=== PATIENT | male | born 1950 | race Caucasian/White ===

== ENCOUNTER → 2021-01-25 | Outpatient (CLI) | payer MEDICARE ==
--- NOTE | 2021-01-25 16:26 | CT ---
EXAMINATION TYPE: CT sinus wo con DATE OF EXAM: 01/25/2021 COMPARISON: None HISTORY: 70-year-old male Left facial pain. Chronic sinusitis. CT DLP: 615.90 mGycm Automated exposure control for dose reduction was used. TECHNIQUE: Noncontrast axial views of the paranasal sinuses were obtained. Coronal reconstructions pe rformed. FINDINGS: PARANASAL SINUSES: Moderate to severe mucosal thickening left maxillary sinus with frothy partial opacification and poss ible layering fluid. Mild mucosal thickening anterior ethmoid air cells. Trace within the left frontal sinus. Right maxillary sinus and sphenoid sinuses are well pneumatized. 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 There is no destruction of the osseous vicente of the paranasal sinuses. THE NASAL CAVITY: The osteomeatal complexes are patent. In addition, there is a small ostium through the right medial m axillary sinus wall. Rightward nasal septal deviation. The imaged brain shows mild central cerebral atrophy. Orbits and globes appear intact. Visualized mastoid air cells and middle ear cavities are well pneumatized. Cerumen within the right e xternal auditory canal. Reformatted images confirm above findings. IMPRESSION: 1. 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 Correlate for superimposed acute left maxillary sinusitis given the froth y fluid here. 2. Mild mucosal thickening anterior ethmoid air cells and left frontal sinus. 3. Rightward nasal septal deviation.
== END | disposition home or self-care (01) ==
LOC: RADCTMAIN 14:08 → EEVIPCON 14:20
PROVIDERS: ATTEND Otolaryngology
DX: J32.0 Chronic maxillary sinusitis (principal); J34.2 Deviated nasal septum; G50.1 Atypical facial pain
CPT/HCPCS: 70486